=== PATIENT | male | born 1995 | race Caucasian/White ===

== ENCOUNTER 2024-04-07 11:02 | Outpatient (CLI) | payer OTHER, BC, SELFPAY | END 2024-04-07 11:03 | disposition home or self-care (01) | LOC: AMB 04-10 04:19 | PROVIDERS: Visit Provider Family Medicine | DX: S69.92XA Unspecified injury of left wrist, hand and finger(s), initial encounter (principal); W10.9XXA Fall (on) (from) unspecified stairs and steps, initial encounter; Y92.63 Factory as the place of occurrence of the external cause | CPT/HCPCS: A0425; A0429 ==

== ENCOUNTER 2024-04-07 11:21 | Emergency (ER) | payer OTHER, SELFPAY ==
[2024-04-07 11:25] VITALS: BP 128/75; PULSE 88; RESP 18; TEMP 37.2; O2SAT 96
--- NOTE | 2024-04-07 11:35 | CRLHL7_ITS ---
For Patients: As a result of the Century Cures Act, medical imaging exams and procedure reports are released immediately into your electronic medical record. You may view this report before your referring provider. If you have questions, please contact your health care provider. Indication: FALL AT WORK PAIN Technique: Three views of the left wrist and three views of the Comparison: None Findings/Impression: Questionable nondisplaced radial head fracture as seen on lateral view with small elbow effusion. Otherwise, no additional fractures or malalignment. No suspicious osseous lesions. Dictated by Krish Flanagan MD @ 04/07/2024 12:29:01 PM (Electronically Signed)
--- NOTE | 2024-04-07 11:54 | ED.GENADULT ---
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 He notes pain in his left wrist and elbow with any movement. No significant swelling or deformity. Denies any head or neck injury. No numbness or loss of function. Related Data Home Medications ?Medication ?Instructions ?Recorded ?Confirmed No Known Home Medications 04/07/24 04/07/24 Allergies Allergy/AdvReac Type Severity Reaction Status Date / Time azithromycin [From Zithromax] Allergy Intermediate Vomiting Verified 04/07/24 11:25 [facility] Social History Smoking Status: Never smoker Do you use any of these nicotine containing products: None Second hand tobacco smoke exposure: No How often do you have a drink containing alcohol: never AUDIT-C Alcohol total score: 0 Non-prescribed substance use: denies use Exam Narrative: Exam Narrative: Vital signs reviewed In general, alert, well-appearing young man. Head: Normocephalic, atraumatic. Neck: Nontender to palpation. Extremities: Examination of the left upper extremity shows tenderness of the elbow in the antecubital fossa as well as diffuse tenderness of the wrist. No significant swelling or deformity. Radial pulses 2+. Distal CMS is intact. Skin: Warm dry, well perfused. Const: Vital Signs, click to edit/add: Vital Signs - 24 hr 04/07/24 11:25 Temperature 98.9 F Pulse Rate [Pulse Oximeter] 88 Respiratory Rate 18 Blood Pressure [Le ft Upper Arm] 128/75 Pulse Oximetry 96 Oxygen Delivery Me thod Room Air Documenting provider has reviewed patient's vital signs: yes Course Course ED Course: I reviewed his x-rays of the wrist and elbow, the wrist looks negative to me, he does have a joint effusion at the elbow and there is a little bit of the funny contour to the radial head, possibly a nondisplaced fracture, final radiology read as follows: Findings/Impression: Questionable nondisplaced radial head fracture as seen on lateral view with small elbow effusion. Otherwise, no additional fractures or malalignment. No suspicious osseous lesions. I have put him in a Velcro splint for the wrist, he does feel that the wrist is feeling better at this point and he is having more pain in the elbow, perhaps suggesting that the wrist is more of a sprain. Will give him a sling for presumed nondisplaced radial head fracture. I have him off work until re-evaluation by Orthopedics, discussed that if he is not finding the wrist to be improving may need additional imaging. Ibuprofen and/or Tylenol as needed, ice. Return for worsening. Vital Signs Vital signs: Initial Vital Signs Temperature 98.9 F 04/07/24 11:25 Temperature Source Temporal Artery Scan 04/07/24 11:25 Pulse Rate 88 04/07/24 11:25 Respiratory Rate 18 04/07/24 11:25 Blood Pressure 128/75 04/07/24 11:25 Blood Pressure Mean 92 04/07/24 11:25 Blood Pressure Position Semi-Fowlers 04/07/24 11:25 Pulse Oximetry 96 04/07/24 11:25 Oxygen Delivery Method Room Air 04/07/24 11:25 Vital Signs Temperature 98.9 F 04/07/24 11:25 Pulse Rate 88 04/07/24 11:25 Respiratory Rate 18 04/07/24 11:25 Blood Pressure 128/75 04/07/24 11:25 Pulse Oximetry 96 04/07/24 11:25 Oxygen Delivery Method Room Air 04/07/24 11:25 Temperature 98.9 F 04/07/24 11:25 Pulse Rate 88 04/07/24 11:25 Respiratory Rate 18 04/07/24 11:25 Blood Pressure 128/75 04/07/24 11:25 Pulse Oximetry 96 04/07/24 11:25 Oxygen Delivery Method Room Air 04/07/24 11:25 Discharge Plan Discharge Clinical Impression: Sprain and strain of wrist Closed fracture of radial head Qualifiers: Encounter type: initial encounter Fracture alignment: nondisplaced Laterality: left Qualified Code(s): S52.125A - Nondisplaced fracture of head of left radius, initial encounter for closed fracture Patient Disposition: Home, Self-Care Condition: Stable Instructions: Wrist Injury (ED), Elbow Fracture (DC) Additional Instructions: Ice, ibuprofen and/or Tylenol as needed. Sling for elbow, velcro splint for wrist as needed for comfort. Would recommend orthopedic follow-up in the coming week for recheck, off work until then. Call [phone] to schedule with them. Prescriptions: No Action No Known Home Medications Follow Up/Referrals: Provider,Not a Local [Primary Care Provider] - Stand Alone Forms: [employer] Info Instructions
== END 2024-04-07 13:15 | disposition home or self-care (01) ==
PROVIDERS: Emergency Provider Emergency Medicine
DX: S52.125A Nondisplaced fracture of head of left radius, initial encounter for closed fracture (principal); S63.502A Unspecified sprain of left wrist, initial encounter; W17.89XA Other fall from one level to another, initial encounter; Y99.0 Civilian activity done for income or pay
CPT/HCPCS: 73080; 73110; 99283

== ENCOUNTER 2024-08-11 16:00 | Outpatient (RCR) | payer OTHER, BC, SELFPAY | END 2024-08-13 15:30 | disposition home or self-care (01) | PROVIDERS: Visit Provider Physician Assistant Surgical | DX: M77.12 Lateral epicondylitis, left elbow (principal); S52.122A Displaced fracture of head of left radius, initial encounter for closed fracture; R53.1 Weakness; M25.622 Stiffness of left elbow, not elsewhere classified; Z51.89 Encounter for other specified aftercare | CPT/HCPCS: 97033; 97035; 97110; 97140; 97165; X5282 ==

== ENCOUNTER 2024-08-15 17:57 | Emergency (ER) | payer BC, SELFPAY ==
--- OUTSIDE RECORDS SUMMARY | 2024-08-15 18:00 | XMS_ITS | Clinical Summary ---
Author Organization [facility] [facility] Address [place], [place] [address] Care Team Providers Care Circus Laborer Name Role Phone Majo Bui Primary Primary Care Provider Unavailabl e Allergies Active Allergy Reactions Criticality Noted Date Comments Erythromycin Vomiting 03/23/2014 Medications acetaminophen (TYLENOL 8 HOUR ORAL) Take by mouth. Active Active Problems Problem Noted Date Diagnosed Date Concussion 04/07/2015 Medial collateral ligament sprain of knee 2013 Extrinsic asthma, unspecified 03/04/2003 Overview (12/15/2005): Mild Intermitent Asthma Immunizations Name Administration Dates Next Due COVID-19 vaccine (Moderna 100mcg/0.5mL) PF, MDV 12/20/2020,11/22/2020 DTP 1997 DTP-HIB 1997,1997 DTaP 06/11/2002, 9,1997,10/06,1997 HIB PRP-OMP (PedvaxHIB) 1997 HPV 9 (Gardasil 9) 04/09/2024,12/22/2015, 016 Hepatitis A (Peds) 10/23/2015 Hepatitis B (Peds) 04/05/2010, 8,1997,06/12 Hepatitis B, Unspecified 1997,1997,1 08/22/1996 Hib Conjugate, Unspecified 1997,1997 ,1997 Inactivated Polio Vaccine 07/23/2002,1997, 1997 MENINGOCOCCAL VACCINE 2 VIAL [id number] (MENVEO) 10/23/2015 MMR 07/23/2002,09/25/1998 Oral Polio Vaccine 09/25/1998 Polio Virus, Unspecified 07/23/2002,09/05,1997,08/08 Tdap 04/09/2024,04/05/2010 Varicella Vaccine 04/05/2010,06/11/2002 Family History Medical History Relation Name Comments No Known Problems Brother Allergies Father Hyperlipidemia Father Hyperlipidemi a Arthritis Mother Heart Disease Paternal Grandfather Jamison ry Disease Lung cancer Paternal Grandfather coal mi ner, smoker No Known Problems Sister Relation Name Status Comments Brother Alive Father Alive Maternal Grandfather Alive Maternal Grandmother Alive Mother Alive living and not in his life Paternal Grandfather Paternal Grandmother Sister Alive x2 Social History Tobacco Use Types Packs/Day Years Used Date Smoking Tobacco: Never Smokeless Tobacco: Never Tobacco Cessation:Counseling Given: Not Answered Alcohol Use Standard Drinks/Week Comments Yes 0 (1 standard drink = 0.6 oz pur e alcohol) less than weekly PHQ-2 Answer Date Recorded PHQ-2 TOTAL SCORE 0 04/09/2024 Social Connections Answer Date Recorded Frequency of Communication with Friends and Fami ly Not on file 04/09/2024 Sex and Gender Information Value Date Recorded Sex Assigned at Not on file 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 Gender Identity Not on file Sexual Orientation Not on file Occupation Industry Job Start Date Job End Date Student Not on file Not on file Not on file Obstetrics History Last Filed Vital Signs Vital Sign Reading Time Taken Comments Blood Pressure 132/85 04/09/2024 10:08 AM CDT Pulse 57 04/09/2024 10:08 AM CDT Temperature 36.8 C (98.2 F) 07/05/2015 3:14 PM FOREPART LASTER Respiratory Rate 20 10/30/2005 9:30 AM FOREPART LASTER Oxygen Saturation 97% 04/09/2024 10:08 AM CDT Inhaled Oxygen Concentration - - Weight 132.5 kg (292 lb) 04/09/2024 10:08 AM CDT Height 185 cm (6' 0.84) 04/09/2024 10:08 AM CDT Body Mass Index 38.7 04/09/2024 10:08 AM CDT Plan of Treatment Health Maintenance Due Date Last Done Comments HIV for age 15-65 2012 Hepatitis C screening for ag e 18-79 2015 COVID-19 vaccine series (2023- season) 2024 12/20/2020, 11/22/2020 Influenza for age 9-49 04/04/2024 BMI (ht and wt on same day) for age 18+ 04/09/2025 04/09/2024 Depression screening for age 12+ 04/09/2025 04/09/2024 Tetanus booster 04/09/2034 04/09/2024, 04/05/2010 Tdap Completed 04/09/2024, 04/05/2010 Pneumococcal series for age 6-49 Aged Out No longer eligible b ased on patient's age to complete this topic Insurance [facility] Care Teams Circus Laborer Relationship Specialty Start Date End Date , No Primary . PCP - General 02/29/16
[2024-08-15 18:12] VITALS: BP 134/82; PULSE 111; RESP 18; TEMP 36.6; O2SAT 96; BMI 41.5
--- NOTE | 2024-08-15 20:07 | ED_ITS ---
HPI - General Adult General Date Seen: 08/15/24 Chief complaint: Skin/Abscess/Foreign Body Stated complaint: Bleeding boil, sent via triage nurse Time Seen by Provider: 08/15/24 20:06 History of Present Illness HPI narrative: 29-year-old male is sent to the ER tonadriana by his phone triage nurse with concern for a bleeding boil on the side of his neck. Per notes from the primary care clinic he was seen on 08/10/2024 with an abscess on his left neck, posterior to the angle of the mandible. He had a 3 cm area of induration. No other adenopathy. Per notes the infection had been present for about a week at that time. Put on cephalexin 500 t.i.d. for a week He history from the patient is that he has had a small pimple on his left neck below the angle of his jaw for a couple of weeks. It started as a pimple and the, probably an ingrown hair from his welsh. Earlier this week it started to get bigger and more inflamed and painful so he saw his PCP. He has been taking the prescribed antibiotics. He notes that despite that he has had increasing pain and discomfort in that area over the past couple of days. It broke open and started draining some pus and some bloody fluid today. He is not having any fever chills. No other rashes. Incidentally he notes Mild nasal congestion. He does have some fullness in his right ear. No other URI symptoms. Related Data Home Medications ?Medication ?Instructions ?Recorded ?Confirmed acetaminophen 325 mg tablet 650 mg PO Q4-6H PRN 04/14/24 08/10/24 (Tylenol) ibuprofen 200 mg tablet 400 mg PO Q6-8H PRN 04/14/24 08/10/24 Previous Rx's ?Medication ?Instructions ?Recorded cephalexin 500 mg capsule 500 mg PO TID 7 days #21 caps 08/10/24 Allergies Allergy/AdvReac Type Severity Reaction Status Date / Time azithromycin (From Zithromax) Allergy Intermediate Vomiting Verified 08/10/24 16:29 [facility] Medical History (Updated 08/15/24 @ 20:52 by Davin Veras MD) Abscess ?L02.91 - Cutaneous abscess, unspecified (ICD-10) Tear of MCL (medial collateral ligament) of knee ?S83.419A - Sprain of medial collateral ligament of unspecified knee, initial encounter (ICD-10) Concussion ?S06.0XAA - Concussion with loss of consciousness status unknown, initial encounter (ICD-10) Surgical History History of tonsillectomy ?Z90.89 - Acquired absence of other organs (ICD-10) Social History (Updated 08/11/24 @ 09:58 by Crystal Gaona ~ [facility]) What is your current living situation?: I presently have a place to live Problems where you live: pests, such as bugs, ants, or mice In the past 12 months, utilities in danger of being shut off: no In past 12 months, lack of transportation kept you from medical appts, meetings, work, or getting things needed for daily living: no In the past 12 mos, have been you worried that your food would run out before you had money to buy more?: never true In the past 12 mos, the food you bought just didn't last and you didn't have money to buy more?: never true Smoking Status: Never smoker Do you use any of these nicotine containing products: None Second hand tobacco smoke exposure: No How often do you have a drink containing alcohol: never AUDIT-C Alcohol total score: 0 Non-prescribed substance use: denies use How often does anyone, including family, friends and others, physically hurt you : never How often does anyone, including family, friends and others, insult or talk down to you: never How often does anyone, including family, friends and others, threaten you with harm: never How often does anyone, including family, friends and others, scream or curse at you: never Health Related Social Needs: Inadequate housing (Z59.1) Exam Narrative: Exam Narrative: Constitutional: Appears well-developed and well-nourished. Alert. Conversant. Non toxic. HENT: Head: Atraumatic. Nose: Nose normal. Right ear: Pinna, mastoid, canal normal. TM is erythematous with some opaque fluid behind it. Suspicious for otitis media. . Left ear: Pinna, mastoid, canal, TM normal. Mouth/Throat: Oral mucosa is clear and moist. no trismus. Pharynx normal. Tonsils symmetric. No tonsillar enlargement, erythema, or exudate. Eyes: Conjunctivae normal. EOM normal. Pupils equal, round, and reactive to light. No scleral icterus. Neck: Normal range of motion. Neck supple. No tracheal deviation present. Cardiovascular: Normal rate, regular rhythm. No gallop. No friction rub. No mu rmur heard. Pulmonary/Chest: Effort normal. No stridor. No respiratory distress. No wheezes. No rales. No rhonchi . Musculoskeletal: RUE: Normal range of motion. No tenderness. No deformity LUE: Normal range of motion. No tenderness. No deformity RLE: Normal range of motion. No edema. No tenderness. No deformity LLE: Normal range of motion. No edema. No tenderness. No deformity Lymph: No cervical adenopathy. Neurological: Alert and oriented to person, place, and time. Normal strength. CN II-VII intact. No sensory deficit. GCS eye subscore is 4. GCS verbal subscore is 5. GCS motor subscore is 6. Normal coordination Skin: He does have an erythematous area of indurated skin roughly 2 x 4 cm on the patient's left lateral neck just below his the angle of his left mandible. In the center of this there is roughly a 1 cm x 2 mm open area that is draining a small amount of bloody purulent fluid. The tissue around the open area is indurated but no definite fluctuance. Other than that rash, Skin is warm and dry. No rash noted. No pallor. Normal capillary refill. Psychiatric: Normal mood. Normal affect. Const: Vital Signs, click to edit/add: Vital Signs - 24 hr 08/15/24 18:12 Temperature 97.9 F Pulse Rate [Pulse Oximeter] 111 H Respiratory Rate 18 Blood Pressure [Ri t Upper Arm] 134/82 Pulse Oximetry 96 Oxygen Delivery Me thod Room Air Course Course ED Course: Patient evaluated ER stay room 2. History and physical obtained. Discussed options. He gave verbal consent to go ahead with I and D for the swollen area to make sure we get all the pus drained Procedure: Incision and drainage of cutaneous abscess on left neck Consent: Verbal from patient Sterile preparation with Betadine Anesthesia: Local infiltration with a ring block around the abscess using a total of 8 mL of 1% lidocaine with epi. Good anesthesia achieved Procedure: The abscess was incised using 11 blade straight incision. I tried to go straight through the area that was already open and draining to not broadened the skin scar. Once we were able to incise into the abscess I was able to express out additional bloody purulent fluid and a few small flecks of caseating pus. Then we probed the abscess to to break up any loculations. None were encountered. Wound culture was obtained and sent to lab. Patient tolerated the procedure well. Vital Signs Vital signs: Initial Vital Signs Temperature 97.9 F 08/15/24 18:12 Temperature Source Temporal Artery Scan 08/15/24 18:12 Pulse Rate 111 H 08/15/24 18:12 Respiratory Rate 18 08/15/24 18:12 Blood Pressure 134/82 08/15/24 18:12 Blood Pressure Mean 99 08/15/24 18:12 Blood Pressure Position Sitting 08/15/24 18:12 Pulse Oximetry 96 08/15/24 18:12 Oxygen Delivery Method Room Air 08/15/24 18:12 Vital Signs Temperature 97.9 F 08/15/24 18:12 Pulse Rate 111 H 08/15/24 18:12 Respiratory Rate 18 08/15/24 18:12 Blood Pressure 134/82 08/15/24 18:12 Pulse Oximetry 96 08/15/24 18:12 Oxygen Delivery Method Room Air 08/15/24 18:12 Temperature 97.9 F 08/15/24 18:12 Pulse Rate 111 H 08/15/24 18:12 Respiratory Rate 18 08/15/24 18:12 Blood Pressure 134/82 08/15/24 18:12 Pulse Oximetry 96 08/15/24 18:12 Oxygen Delivery Method Room Air 08/15/24 18:12 Medical Decision Making [facility] Narrative Medical decision making narrative: This patient presents with left neck redness pain and redness which is been ongoing since last week now with new bloody purulent drainage that began today.. Pt has signs of an abscess. It was already draining some bloody purulent fluid but we were concerned the worse probably still a retained abscess cavity. I&D performed and successfully expressed purulent drainage; see procedure note. No signs of serious infx like necrotizing fasciitis or rapid cellulitis given fever curve, spread of erythema over past 24 hours, no crepitance to tissues, no sensation change to tissues. Will need wound cares q day. Plan home w/ primary; may return to ED for wound check in 48 hours if cannot arrange. Antibiotics given as has some erythema and concerns about cellulitis. Warning signs for wound given on discharge instructions and verbally; see d/c instructions. Has already been so on cephalexin 500 t.i.d. for the past 5 days. Will have him continue cephalexin increased frequency to q.i.d.. Also add Bactrim to cover for possible community-acquired MRSA. Incidentally haven does have evidence for a right otitis media. This would likely be treated by his antibiotics for cellulitis so will not add additional therapy there. He is otherwise well appearing, nontoxic. I do not think he needs laboratory workup, blood cultures, IV antibiotics, or admission for sepsis at this time. No evidence for any necrotizing infection or need for more broad surgical debridement at this point. Precautions for return to the ER reviewed. Discharge Plan Discharge Clinical Impression: Abscess of skin of neck, Otitis media Patient Disposition: Home, Self-Care Condition: Stable Instructions: Abscess (ED), Abscess Incision and Drainage (DC) Additional Instructions: As we discussed, please monitor the infection site carefully. It will probably keep draining little bit of blood and pus for the next couple of days and then gradually heal over. Keep it covered with a dressing to catch the drainage until that is dry. If you have worsening swelling, spreading redness, worsening pain, or high fever, please come back to the ER to be rechecked. To treat the infection please continue on cephalexin 4 times daily for the next week and also add a 2nd antibiotic, called Bactrim, twice daily for 1 week. These antibiotics will also help treat your ear infection. Come back to your doctor or return to the ER right away if you have worsening ear pain or other problems. Prescriptions: No Action cephalexin 500 mg capsule 500 mg PO TID 7 Days Qty: 21 0RF acetaminophen [Tylenol] 325 mg tablet 650 mg PO Q4-6H PRN ibuprofen 200 mg tablet 400 mg PO Q6-8H PRN Follow Up/Referrals: John Whalen MD [Primary Care Provider] - Stand Alone Forms: [employer] Info Instructions
--- OUTSIDE RECORDS SUMMARY | 2024-08-15 21:08 | XMS_ITS | Clinical Summary ---
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 Gender Identity Not on file Sexual Orientation Not on file Occupation Industry Job Start Date Job End Date Student Not on file Not on file Not on file Obstetrics History Last Filed Vital Signs Vital Sign Reading Time Taken Comments Blood Pressure 132/85 04/09/2024 10:08 AM CDT Pulse 57 04/09/2024 10:08 AM CDT Temperature 36.8 C (98.2 F) 07/05/2015 3:14 PM VEGETABLE FARM MANAGER Respiratory Rate 20 10/30/2005 9:30 AM VEGETABLE FARM MANAGER Oxygen Saturation 97% 04/09/2024 10:08 AM CDT [...] patient's age to complete this topic Insurance [facility] Care Teams Mat Worker Relationship Specialty Start Date End Date , No Primary . PCP - General 02/29/16
== END 2024-08-15 21:15 | disposition home or self-care (01) ==
LOC: ED 21:07
PROVIDERS: Emergency Provider Emergency Medicine; PCP Internal Medicine
DX: L02.11 Cutaneous abscess of neck (principal); H66.91 Otitis media, unspecified, right ear
CPT/HCPCS: 87070; 99283; 99284

== ENCOUNTER 2024-11-25 08:59 | Outpatient (CLI) | payer BC, SELFPAY | END 2024-11-25 09:00 | disposition home or self-care (01) | PROVIDERS: Visit Provider Family Medicine | DX: Z00.01 Encounter for general adult medical examination with abnormal findings (principal); R10.9 Unspecified abdominal pain; R79.89 Other specified abnormal findings of blood chemistry; E66.9 Obesity, unspecified | CPT/HCPCS: 80053; 80061; 86364 ==

== ENCOUNTER 2024-12-03 07:34 | Outpatient (CLI) | payer BC, SELFPAY ==
--- NOTE | 2024-12-03 08:15 | CRLHL7_ITS ---
For Patients: As a result of the Century Cures Act, medical imaging exams and procedure reports are released immediately into your electronic medical record. You may view this report before your referring provider. If you have questions, please contact your health care provider. INDICATION: Abdominal pain and elevated liver function tests TECHNIQUE: Ultrasound abdomen limited. Sonographic images of the right upper quadrant were obtained using baron-scale and color Doppler images. COMPARISON: None FINDINGS: Liver: Increased in echogenicity with focal sparing adjacent to the gallbladder fossa. No masses. No intrahepatic biliary dilatation. Gallbladder: No stones or sludge. Normal wall thickness. No pericholecystic fluid. Common bile duct: 5 mm. Pancreas: Partially obscured by bowel gas without focal lesion. Right kidney: Normal in size. Normal echotexture and cortex. No masses, stones, or hydronephrosis. Vasculature: Proximal abdominal aorta and IVC are normal. IMPRESSION: 1. Moderate hepatic steatosis. 2. No evidence of cholelithiasis or cholecystitis. Dictated by Isiah Faye MD @ 12/03/2024 9:58:36 AM (Electronically Signed)
== END 2024-12-03 07:35 | disposition home or self-care (01) ==
LOC: US 07:35
PROVIDERS: Visit Provider Family Medicine
DX: R10.9 Unspecified abdominal pain (principal); K76.0 Fatty (change of) liver, not elsewhere classified; R79.89 Other specified abnormal findings of blood chemistry
CPT/HCPCS: 76705